=== PATIENT | male | born 1965 | race African-American/Black ===

== ENCOUNTER 2017-07-04 15:51 | Emergency (ER) | payer BC ==
[~2017-07-04] VITALS: Ht 180.3 cm; Wt 95.2 kg
[2017-07-04 16:00] VITALS: Ht 180.3 cm; Wt 95.2 kg
[2017-07-04 18:17] VITALS: BP 155/102
== END 2017-07-04 18:17 | disposition home or self-care (01) ==
LOC: ED 15:51
DX: T78.1XXA Other adverse food reactions, not elsewhere classified, initial encounter (principal); X58.XXXA Exposure to other specified factors, initial encounter
CPT/HCPCS: J1200; J7512